=== PATIENT | female | born 1945 | race Caucasian/White ===

== ENCOUNTER → 2022-09-13 15:01 | Outpatient (CLI) | payer OTHER, SELFPAY ==
--- NOTE | 2022-09-13 15:38 | DI.ECHO.S_ITS ---
Interpretation Summary The ejection fraction is estimated to be 55-60%. Diastolic function could not be accurately assessed due to unobtainable data. The right ventricle is normal in size and function. The left atrium is mildly dilated. There is moderate aortic regurgitation. Pulmonary artery pressures cannot be estimated because of the lack of a measurable TR jet velocity. Compared to the prior study dated 07/29/2021, no significant change. Procedure: A two-dimensional transthoracic echocardiogram with color flow and Doppler was performed. The study quality was technically adequate. Comparison is made with the echocardiogram of 07/29/2021. The patient was in normal sinus rhythm during the exam. Left Ventricle: The left ventricle is normal in size and wall thickness. Left ventricular systolic function is normal. The ejection fraction is estimated to be 55-60%. There are no focal wall motion abnormalities. Diastolic function could not be accurately assessed due to unobtainable data. Right Ventricle: The right ventricle is normal in size and function. Atria: The left atrium is mildly dilated. Right atrial size is normal. The interatrial septum grossly appears intact with no obvious evidence for an atrial septal defect. Mitral Valve: The mitral valve is normal in structure and function. There is trace mitral regurgitation. Aortic Valve: The aortic valve is trileaflet. There is no aortic valve stenosis. There is moderate aortic regurgitation. There is an eccentric jet of aortic insufficiency directed against the anterior mitral leaflet. Tricuspid Valve: The tricuspid valve is normal in structure and function. There is a trace or physiologic amount of tricuspid regurgitation. Pulmonary artery pressures cannot be estimated because of the lack of a measurable TR jet velocity. Pulmonic Valve: The pulmonic valve is normal in structure and function. There is mild pulmonic regurgitation. Great Vessels: The aortic root is normal size. The dimensions of the ascending aorta are normal. The IVC is of normal diameter and collapses greater than 50% with a sniff. This suggests a low right atrial pressure of 3 mm Hg. Pericardium/ Pleura There is no pericardial effusion. There is no pleural effusion. MMode/2D Measurements & Calculations LVIDd: 5.2 cm LVOT diam: 2.3 cm LVIDs: 3.5 cm Ao root diam: 3.1 cm FS: 32.5 % asc Aorta Diam: 3.2 cm IVSd: 0.90 cm LVPWd: 1.0 cm LV cook. diameter/BSA (cm/m^2): 3.0 LV sys. diameter/BSA (cm/m^2): 2.0 LA A2 area: 18.9 cm2 RA long axis: 5.1 cm LA A4 area: 20.3 cm2 RA area: 14.7 cm2 LA length (vol): 5.4 cm RA vol: 36.2 ml LA vol: 60.0 ml RA : 21.3 ml/m2 LA vol index: 35.4 ml/m2 TAPSE: 2.6 cm Doppler Measurements & Calculations LVOT Max Dariusz: 114.2 cm/sec MV E max dariusz: 34.4 cm/sec LV V1 max P.2 mmHg MV A max dariusz: 41.1 cm/sec LV V1 VTI: 23.8 cm MV E/A: 0.84 AI P1/2t: 679.8 msec Med Peak E' Dariusz: 3.2 cm/sec AI dec slope: 182.9 cm/sec2 E/E' med: 10.6 Lat Peak E' Dariusz: 4.1 cm/sec E/E' lat: 8.4 E/e' average: 9.5 MV dec time: 0.43 sec SV(LVOT): 101.6 ml Reading Physician:09:37 AM
== END ==
PROVIDERS: Referring Provider Internal Medicine Cardiovascular Disease; Visit Provider Internal Medicine Cardiovascular Disease
DX: I35.1 Nonrheumatic aortic (valve) insufficiency (principal); I37.1 Nonrheumatic pulmonary valve insufficiency
CPT/HCPCS: 93306

== ENCOUNTER 2023-03-07 07:33 | Day surgery (SDC) | payer MEDICARE, SELFPAY ==
--- NOTE | 2023-03-07 | PATH_ITS ---
[facility] Accession Number: [id number] No. of containers..01 Tissue . 01 Material submitted: . colon - TRANSVERSE COLON POLYP X 2 . 01 Diagnosis: Transverse Colon, Polyp x2, Biopsy: Tubular adenomas. [facility] 03/10/2023 0538 Local . 01 Electronically signed: . Robina Helms MD, Pathologist NPI- [id number] . 01 Gross description: . TRANSVERSE COLON POLYP X 2: Received in formalin are 2 fragment(s) of valentine, soft tissue measuring 0.7 x 0.3 x 0.1 cm to 0.5 x 0.2 x 0.1 cm submitted entirely in 1 cassette(s) /CPE 03/08/2023 0711 Local . 01 Pathologist provided ICD-10: D12.3 . 01 CPT . 785590 Specimen Comment: A courtesy copy of this report has been sent to [phone] Performed at: 01 [facility] [address] [place] [address] [address], [place], [place] [id number] MD Ed iPke MD Phone: [phone]
[2023-03-07] MEDS: LACTATED RINGERS 1,000 ML 100 ML IV (08:02)
[2023-03-07 08:20] VITALS: BP 115/58; PULSE 73; RESP 18; TEMP 36.3; O2SAT 98; BMI 21.7
--- NOTE | 2023-03-07 08:28 | PM.HP.1 ---
History of Present Illness History of Present Illness Date Patient Seen: 03/07/23 Time Patient Seen: 08:29 Chief complaint: SDC Narrative: Patient here for colonoscopy. Personal history of colon polyps. Meds Home Medications and Allergies Home Medications Medication Instructions Recorded Confirmed Type alendronate 70 mg-cholecalciferol 1 tab PO QWEEK 03/07/23 03/07/23 History (vitamin D3) 5,600 unit tablet (Fosamax Plus D) mv-mn-folic 200 mcg-vit K 15 200 cap PO DAILY 03/07/23 03/07/23 History mcg-lutein 5 mg-zeaxanthin 1 mg capsule (PreserVision AREDS 2 Plus Multivit) rosuvastatin 10 mg tablet (Crestor) 10 mg PO DAILY 03/07/23 03/07/23 History Allergies Allergy/AdvReac Type Severity Reaction Status Date / Time codeine Allergy Intermediate Hives Verified 03/07/23 08:10 Review of Systems Review of Systems ROS: Yes All systems reviewed with the patient and are negative except as otherwise documented Exam Const General: cooperative HENMT Head: normal to inspection Eyes General: appearance normal, both eyes and all related structures Neck Neck: normal visual inspection Chest Chest: normal inspection of the chest Resp Effort & Inspection: normal respiratory effort Cardio Rate: regular rate GI Inspection: normal to inspection Skin General: no rashes or lesions noted Neuro General: patient alert and patient awake Extrem General: normal to inspection and no pedal edema Psych Appearance: grossly normal Assessment & Plan Assessment & Plan narrative: 77-year-old female with a personal history of adenomatous colon polyp. Colonoscopy is pursued today.
--- NOTE | 2023-03-07 08:29 | PM.PREOP ---
Pre-operative Note Interval Note History & Physical reviewed/Exam performed by Physician: Yes Changes to H&P: No ASA Class (for procedural sedation): II
--- NOTE | 2023-03-07 09:33 | PM.OP.COLON ---
Operative Date/Time/Diagnoses Date of procedure: 03/07/23 Time of procedure: 09:33 Pre-op diagnosis: Colon polyps history Post-op diagnosis: same Procedure & Clinicians Study performed: Colonoscopy with hot and cold snare polypectomy Same procedure as scheduled: Yes Indications: Colon polyps history Surgeon: Eyad Coronel Procedure Notes SCOAP/Timeout: Done Procedure in detail: After the risks and benefits were explained, written and verbal informed consent was obtained. The patient was brought into the procedure room and placed into the left lateral decubitus position. Please see anesthesia notes for sedation details. Digital rectal examination was accomplished. The scope was introduced into the patient and advanced under direct visualization to the cecum as identified by the appendiceal orifice and ileocecal valve. The scope was slowly withdrawn to carefully examine the mucosa for any defects or lesions. Comprehensive imaging was accomplished throughout the rectum including the dentate line. The colon was decompressed, the scope was then removed from the patient who tolerated the procedure well. Pediatric colonoscope Adequate bowel prep Scope withdrawal time: 8 minutes Sedation minutes: 24 Complications: none Impression: The patient had a fairly tortuous colon. In the transverse colon there were 3 polyps ranging in size from 5-6 mm. The smallest polyp was removed with cold snare. The other 2 were removed with hot snare and submitted for histopathology. No additional significant mucosal pathology appreciated throughout. The patient had grade 4 hemorrhoids nonthrombosed. Endoscopic diagnosis 1. Grade 4 hemorrhoids 2. Multiple polyps 3. Twisty colon Post-procedure Plan for aftercare: 1. Await histopathology 2. Consider repeat colonoscopy 3 years. Disposition: PACU
[2023-03-07 09:35] VITALS: BP 116/59; PULSE 91; RESP 12; TEMP 36.2; O2SAT 97
[2023-03-07 09:42] VITALS: BP 95/44; PULSE 86; RESP 13; O2SAT 96
[2023-03-07 09:45] VITALS: BP 92/52; PULSE 73; RESP 12; O2SAT 97
[2023-03-07 09:55] VITALS: BP 87/51; PULSE 79; RESP 17; O2SAT 97
== END 2023-03-07 10:11 | disposition home or self-care (01) ==
PROVIDERS: PCP Internal Medicine; Referring Provider Internal Medicine Gastroenterology; Visit Provider Internal Medicine Gastroenterology
PROC: 0DJD8ZZ Inspection of Lower Intestinal Tract, Via Natural or Artificial Opening Endoscopic (ICD-10-PCS; CPT 45378; principal; 2023-03-07 09:00)
DX: Z12.11 Encounter for screening for malignant neoplasm of colon (principal); Z86.010 Personal history of colon polyps; K64.3 Fourth degree hemorrhoids; D12.3 Benign neoplasm of transverse colon
CPT/HCPCS: 45385; J2704